=== PATIENT | female | born 1940 | race Two or more races ===

== ENCOUNTER 2019-10-24 13:04 | Emergency (ER) | payer MEDICARE, OTHER ==
[~2019-10-24] VITALS: Ht 162.6 cm; Wt 80.7 kg
[2019-10-24 15:05] VITALS: BP 143/90
== END 2019-10-24 15:05 | disposition left against medical advice (07) ==
LOC: ED 13:04
DX: R10.30 Lower abdominal pain, unspecified (principal); I10 Essential (primary) hypertension